=== PATIENT | female | born 1980 | race African-American/Black ===

== ENCOUNTER 2017-04-19 02:25 | Emergency (ER) | payer MEDICAID, OTHER ==
[~2017-04-19] VITALS: Ht 160 cm; Wt 81.6 kg
[~2017-04-19 02:25] MED LIST: ACE250T PO; FER325T PO; HYDR-4663 PO; IRONTAB35; PRED-188 PO; PRO25I PO
[2017-04-19 04:48] LABS: DEFINITIVE VIEW TRANSMISSION; Hematocrit 27.5 % (36.0-46.0); Hemoglobin 8.2 g/dL (12.2-16.2); Mean Corpuscular Hemoglobin 18.9 pg (28.0-32.0); Mean Corpuscular Hgb Conc. 29.9 g/dL (32.0-36.0); Mean Corpuscular Volume 63.2 fL (80.0-100.0); Mean Platelet Volume 11.5 fL (7.4-10.4); Platelet Count (auto) 361 10^3/uL (140-450); Red Cell Distribution Width 18.9 % (11.6-16.0); SUSPECT VIEW TRANSMISSION; White Blood Cell 6.7 10^3/uL (4.4-10.8)
[2017-04-19 05:07] LABS: INR 0.95 (0.9-1.15); Partial Thromboplastin Time 28.2 sec (22.64-33.71); Prothrombin Time 10.3 sec (9.37-12.3)
[2017-04-19 05:20] LABS: Metamyelocytes % 0; Myelocytes % 0; Promyelocytes % 0; Reactive Lymphocytes 0
[2017-04-19] MEDS ORDERED: HYDROcodone-ACET 5/325MG TAB PO ONE (05:30)
[2017-04-19 05:36] LABS: Albumin 2.9 g/dL (3.4-5.0); Anion Gap 12 (5-15); Aspartate Aminotransferase 15 U/L (15-37); BUN/Creatinine Ratio 16.8; Blood Urea Nitrogen 16 mg/dL (7-18); Carbon Dioxide 22 mmol/L (21-32); Chloride 110 mmol/L (98-107); GFR African American 85 mL/min; GFR Non-African American 70 mL/min; Glucose 76 mg/dL (74-106); Magnesium 2.1 mg/dL (1.6-2.6); Potassium 3.8 mmol/L (3.5-5.1); Sodium 144 mmol/L (136-145)
[2017-04-19 05:41] LABS: Alkaline Phosphatase 66 U/L (45-117); Bilirubin, Total 0.3 mg/dL (0.2-1.0); Total Protein 6.7 g/dL (6.4-8.2)
[2017-04-19 05:51] LABS: Urine Bilirubin Negative (Negative); Urine Blood Negative /uL (Negative); Urine Color Colorless (Yellow); Urine Glucose Normal (Normal); Urine Ketone Negative (Negative); Urine Mucus FEW (None Seen); Urine RBC 19 /hpf (0 - 4); Urine Squamous Epithelial Cell FEW /hpf (<5); Urine Urobilinogen Normal (Negative)
[2017-04-19 05:55] LABS: Urine Nitrite POSITIVE (Negative)
[2017-04-19 06:31] LABS: Anisocytosis Slight; Platelet Estimate Adequate
[2017-04-19 06:32] LABS: Hypochromia Slight; Ovalocytes FEW
[2017-04-19 08:42] LABS: Acetaminophen < 2.0 ug/mL (10-30); Salicylate < 1.7 mg/dL (2.8-20.0)
[2017-04-19 09:01] VITALS: BP 124/90
[2017-04-19] MEDS ORDERED: NALBUPHINE HCL 10 MG/1ml INJECTION IV ONE (10:45)
[2017-04-19] MEDS ORDERED: PROMETHAZINE HCL 25 MG/ML 1ML IV ONE (10:45)
== END 2017-04-19 15:07 | disposition home or self-care (01) ==
LOC: ER 02:25 → EDBD 02:25 → ER 15:07
DX: G93.2 Benign intracranial hypertension (principal); R55 Syncope and collapse; E16.2 Hypoglycemia, unspecified; E44.0 Moderate protein-calorie malnutrition; Z68.31 Body mass index [BMI] 31.0-31.9, adult; N39.0 Urinary tract infection, site not specified; D50.9 Iron deficiency anemia, unspecified; G40.909 Epilepsy, unspecified, not intractable, without status epilepticus; E78.5 Hyperlipidemia, unspecified; I10 Essential (primary) hypertension
CPT/HCPCS: 36415; 70450; 72125; 80053; 80307; 80320; 80329; 81001; 81025; 83735; 84484; 85007; 85027; 85610; 85730; 93005; 96374; 96375; 99285; J2300; J2550

== ENCOUNTER 2017-09-27 16:16 | Emergency (ER) | payer MEDICAID ==
[~2017-09-27] VITALS: Ht 162.6 cm; Wt 133.4 kg
[~2017-09-27 16:16] MED LIST changes: -HYDR-4663 PO; +HYDR-4683 PO
[2017-09-27 16:21] VITALS: BP 144/104
== END 2017-09-27 20:18 | disposition left against medical advice (07) ==
LOC: ER 16:16
DX: R51 Headache (principal); Z53.21 Procedure and treatment not carried out due to patient leaving prior to being seen by health care provider
CPT/HCPCS: 70450